=== PATIENT | female | born 1990 | race Two or more races ===

== ENCOUNTER 2018-05-20 18:02 | Outpatient (CLI) | payer OTHER ==
[~2018-05-20] VITALS: Ht 162.6 cm; Wt 81.8 kg
[2018-05-20 18:12] VITALS: BP 99/49
== END 2018-05-20 19:05 | disposition home or self-care (01) ==
LOC: LDOP 18:02
PROVIDERS: ATTEND Obstetrics & Gynecology Maternal & Fetal Medicine
DX: O26.892 Other specified pregnancy related conditions, second trimester (principal); R10.9 Unspecified abdominal pain; Z3A.25 25 weeks gestation of pregnancy
CPT/HCPCS: 59025; 99201; G0463

== ENCOUNTER 2018-08-24 17:38 | Outpatient (CLI) | payer OTHER ==
[~2018-08-24] VITALS: Ht 162.6 cm; Wt 86.3 kg
[2018-08-24 18:22] VITALS: BP 105/55
[2018-08-24] MEDS ORDERED: PREN1TAB60 PO (18:42)
[2018-08-24] MEDS ORDERED: NITR100C56 PO (18:47)
== END 2018-08-24 18:52 | disposition home or self-care (01) ==
LOC: LDOP 17:38
PROVIDERS: ATTEND Obstetrics & Gynecology Maternal & Fetal Medicine
DX: O42.92 Full-term premature rupture of membranes, unspecified as to length of time between rupture and onset of labor (principal); Z3A.38 38 weeks gestation of pregnancy
CPT/HCPCS: 59025; 84112; 99211; G0463